=== PATIENT | female | born 1965 | race Caucasian/White ===

== ENCOUNTER 2017-07-05 23:05 | Inpatient (IN) | payer MEDICAID ==
[2017-07-06 00:02] LABS: ADD MAN DIFF? NO
[2017-07-06 00:05] LABS: WHITE BLOOD COUNT 12.1 10^3/ul (4.8-10.8)
[2017-07-06 00:05] LABS: BASOPHILS % 0.2 % (0.0-2.0); EOSINOPHILS % 0.1 % (0.0-7.0); HEMATOCRIT 35.9 % (37.0-47.0); HEMOGLOBIN 11.7 g/dl (12.0-16.0); LYMPHOCYTES # 1.1 10^3/ul (0.8-2.9); LYMPHOCYTES % 9.1 % (15.0-51.0); MEAN CORPUSCULAR HEMOGLOBIN 23.8 pg (29.0-33.0); MEAN CORPUSCULAR HGB CONC 32.6 g/dl (32.0-37.0); MEAN CORPUSCULAR VOLUME 73.1 fl (82.0-101.0); MEAN PLATELET VOLUME 10.8 fl (7.4-10.4); MONOCYTE # 0.7 10^3/ul (0.3-0.9); MONOCYTES % 5.8 % (0.0-11.0); NEUTROPHIL # 10.2 10^3/ul (1.6-7.5); NEUTROPHILS % 84.2 % (39.0-77.0); PLATELET COUNT 282 10^3/UL (140-415); RED BLOOD COUNT 4.91 10^6/ul (4.20-5.40); RED CELL DISTRIBUTION WIDTH 14.6 % (11.5-14.5)
[2017-07-06] MEDS: KETOROLAC 15 MG INJ IV (00:19)
[2017-07-06] MEDS: ACETAMINOPHEN 325 MG TAB PO ×4 (00:19→20:40)
[2017-07-06] MEDS: SODIUM CHLORIDE 0.9% 1L BAG IV* (00:19)
[2017-07-06 00:20] LABS: ADD UMIC YES; UR ASCORBIC ACID NEGATIVE (NEGATIVE); UR BACTERIA FEW /HPF (NONE SEEN); UR BILIRUBIN (Dip) NEGATIVE (NEGATIVE); UR BLOOD (Dip) 2+ mg/dL (NEGATIVE); UR CLARITY SLIGHTLY CLOUDY (CLEAR); UR COLOR YELLOW (YELLOW); UR GLUCOSE (Dip) 3+ mg/dL (NEGATIVE); UR KETONES (Dip) 2+ mg/dL (NEGATIVE); UR LEUKOCYTE ESTERASE (Dip) NEGATIVE Leu/ul (NEGATIVE); UR NITRITE (Dip) NEGATIVE (NEGATIVE); UR RBC 7 /HPF (0-5); UR SPECIFIC GRAVITY (Dip) 1.024 (1.003-1.030); UR TOTAL PROTEIN (Dip) 1+ mg/dl (NEGATIVE); UR UROBILINOGEN (Dip) NEGATIVE (NEGATIVE); UR WBC 2 /HPF (0-5)
[2017-07-06 00:25] LABS: INR 1.09; PROTIME 14.2 Sec (11.9-14.9); PT RATIO 1.1
[2017-07-06 00:26] LABS: PARTIAL THROMBOPLASTIN TIME 32.9 Sec (25.0-35.0)
[2017-07-06 00:35] LABS: ALANINE AMINOTRANSFERASE 17 IU/L (13-69); ALBUMIN 3.8 g/dl (3.3-4.9); ALBUMIN/GLOBULIN RATIO 1.11; ALKALINE PHOSPHATASE 138 IU/L (42-121); ANION GAP 17 (8-16); ASPARTATE AMINO TRANSFERASE 17 IU/L (15-46); BILIRUBIN,INDIRECT 0.5 mg/dl (0-1.1); BILIRUBIN,TOTAL 0.5 mg/dl (0.2-1.3); BLOOD UREA NITROGEN 11 mg/dl (7-20); CALCIUM 8.9 mg/dl (8.4-10.2); CARBON DIOXIDE 21 mmol/L (21-31); CHLORIDE 99 mmol/L (97-110); CREATININE 0.47 mg/dl (0.44-1.00); GLUCOSE 365 mg/dl (70-220); POTASSIUM 3.5 mmol/L (3.5-5.1); SODIUM 133 mmol/L (135-144); TOTAL PROTEIN 7.2 g/dl (6.1-8.1)
[2017-07-06 00:37] LABS: LACTIC ACID 2.3 mmol/L (0.5-2.0)
[2017-07-06 00:52] LABS: TROPONIN-I < 0.012 ng/ml (0.000-0.120)
[2017-07-06] MEDS: SOD CHLORIDE 0.9% 1,000 ML IV ×3 (02:25→22:10)
[2017-07-06] MEDS: CEFEPIME 1GM/50 ML (PMX) 50 ML IVPB ×3 (02:27→22:09)
[2017-07-06] MEDS: VANCOMYCIN 1 GM (PMX) 250 ML IVPB (02:30)
[2017-07-06] MEDS ORDERED: NACL 0.9% 3 ML SYG IV (02:30)
[2017-07-06] MEDS ORDERED: ONDANSETRON 4 MG TAB PO (02:30)
[2017-07-06 04:03] LABS: IRON 23 ug/dl (35-150)
[2017-07-06 04:09] LABS: HEMOGLOBIN A1C 13.9 % (0-5.9)
[2017-07-06 04:18] LABS: % IRON SATURATION 6 % SAT (22-52); TOTAL IRON BINDING CAPACITY 369 ug/dl (241-421)
[2017-07-06 04:25] LABS: ACETONE NEGATIVE (NEGATIVE)
[2017-07-06 05:57] LABS: ADD MAN DIFF? NO
[2017-07-06 06:01] LABS: BASOPHILS % 0.2 % (0.0-2.0); HEMATOCRIT 30.6 % (37.0-47.0); LYMPHOCYTES # 1.4 10^3/ul (0.8-2.9); LYMPHOCYTES % 13.1 % (15.0-51.0); MEAN CORPUSCULAR HGB CONC 32.7 g/dl (32.0-37.0); MEAN CORPUSCULAR VOLUME 73.6 fl (82.0-101.0); MEAN PLATELET VOLUME 10.9 fl (7.4-10.4); MONOCYTE # 0.6 10^3/ul (0.3-0.9); MONOCYTES % 5.7 % (0.0-11.0); NEUTROPHIL # 8.5 10^3/ul (1.6-7.5); NEUTROPHILS % 80.5 % (39.0-77.0); PLATELET COUNT 255 10^3/UL (140-415); RED BLOOD COUNT 4.16 10^6/ul (4.20-5.40); RED CELL DISTRIBUTION WIDTH 14.8 % (11.5-14.5)
[2017-07-06 06:01] LABS: WHITE BLOOD COUNT 10.6 10^3/ul (4.8-10.8)
[2017-07-06 06:34] LABS: ALANINE AMINOTRANSFERASE 20 IU/L (13-69); ALBUMIN 2.8 g/dl (3.3-4.9); ALBUMIN/GLOBULIN RATIO 0.96; ALKALINE PHOSPHATASE 89 IU/L (42-121); ANION GAP 14 (8-16); ASPARTATE AMINO TRANSFERASE 16 IU/L (15-46); BILIRUBIN,INDIRECT 0.3 mg/dl (0-1.1); BILIRUBIN,TOTAL 0.3 mg/dl (0.2-1.3); BLOOD UREA NITROGEN 8 mg/dl (7-20); CALCIUM 7.6 mg/dl (8.4-10.2); CARBON DIOXIDE 20 mmol/L (21-31); CHLORIDE 107 mmol/L (97-110); CHOLESTEROL 163 mg/dl (100-200); CREATININE 0.42 mg/dl (0.44-1.00); GLUCOSE 326 mg/dl (70-220); HDL CHOLESTEROL 53 mg/dl (37-92); LDL CHOLESTEROL,CALCULATED 94 mg/dl; MAGNESIUM 1.5 mg/dl (1.7-2.5); POTASSIUM 3.4 mmol/L (3.5-5.1); SODIUM 138 mmol/L (135-144); TOTAL PROTEIN 5.7 g/dl (6.1-8.1); TRIGLYCERIDES 82 mg/dl (0-149)
[2017-07-06] MEDS ORDERED: VANCOMYCIN IV PER PHARMACY XX (07:00)
[2017-07-06 07:01] LABS: Allen Test ACCEPTAB; Arterial Base Excess -7.3 mmol/L (-3.0-3); Arterial Blood Gas Oxygen Sat 94.8 mmHG (95.0-98.0); Arterial COHb 0.1 % (0.0-3.0); Arterial Fraction of Oxyhgb 94.4 % (93.0-99.0); Arterial HCO3 15.7 mmol/L (22.0-26.0); Arterial MetHb 0.3 % (0.0-1.5); Arterial Total Hemglobin 10.8 g/dl (12.0-18.0); Arterial pCO2 24.5 mmhg (35-45); MODE ROOM AIR; Site Right Radial
[2017-07-06 07:04] LABS: THYROID STIMULATING HORMONE 0.486 MIU/L (0.465-4.680)
[2017-07-06 07:24] LABS: MONOTEST Negative (NEG)
[2017-07-06] MEDS: HYDROCODONE/APAP (5/325) TAB PO (08:56)
[2017-07-06] MEDS ORDERED: MAGNESIUM SULFATE 4 GM/100 ML 100 ML IVPB (09:00)
[2017-07-06] MEDS: MAGNESIUM SULFATE 4 GM/100 ML 100 ML IVPB (09:43)
[2017-07-06] MEDS: POTASSIUM CHLORIDE (SR) 20 MEQ TAB PO (09:43)
[2017-07-06] MEDS ORDERED: DEXTROSE 50% 50 ML SYRINGE IV ×2 (12:30)
[2017-07-06] MEDS ORDERED: GLUCOSE GEL 15 GRAM TUBE PO ×2 (12:30)
[2017-07-06] MEDS ORDERED: GLUCOSE GEL 15 GRAM TUBE BUCCAL (12:30)
[2017-07-06] MEDS ORDERED: GLUCAGON 1 MG INJ IM (12:30)
[2017-07-06] MEDS: INSULIN ASPART [NOVOLOG] 3 ML PEN SC ×5 (12:43→20:27)
[2017-07-06] MEDS: VANCOMYCIN 1 GM in 250 ML IVPB (14:51)
[2017-07-06] MEDS: INSULIN GLARGINE [LANtus] 3 ML PEN SC (17:05)
[2017-07-06] MEDS ORDERED: INSULIN GLARGINE [LANtus] 3 ML PEN SC (20:00)
[2017-07-07] MEDS: VANCOMYCIN 1 GM in 250 ML IVPB ×2 (02:47→15:41)
[2017-07-07] MEDS: ACETAMINOPHEN 325 MG TAB PO ×2 (06:06→13:56)
[2017-07-07 07:54] LABS: ADD MAN DIFF? NO
[2017-07-07 07:59] LABS: BASOPHILS % 0.4 % (0.0-2.0); EOSINOPHILS % 0.1 % (0.0-7.0); HEMATOCRIT 28.4 % (37.0-47.0); HEMOGLOBIN 9.2 g/dl (12.0-16.0); LYMPHOCYTES # 1.6 10^3/ul (0.8-2.9); LYMPHOCYTES % 23.9 % (15.0-51.0); MEAN CORPUSCULAR HGB CONC 32.4 g/dl (32.0-37.0); MEAN CORPUSCULAR VOLUME 74.2 fl (82.0-101.0); MEAN PLATELET VOLUME 11.3 fl (7.4-10.4); MONOCYTE # 0.6 10^3/ul (0.3-0.9); MONOCYTES % 9.3 % (0.0-11.0); NEUTROPHIL # 4.5 10^3/ul (1.6-7.5); NEUTROPHILS % 65.9 % (39.0-77.0); PLATELET COUNT 220 10^3/UL (140-415); RED BLOOD COUNT 3.83 10^6/ul (4.20-5.40)
[2017-07-07 07:59] LABS: WHITE BLOOD COUNT 6.8 10^3/ul (4.8-10.8)
[2017-07-07] MEDS: INSULIN ASPART [NOVOLOG] 3 ML PEN SC ×7 (08:07→21:50)
[2017-07-07] MEDS: INSULIN GLARGINE [LANtus] 3 ML PEN SC ×2 (08:08→22:12)
[2017-07-07] MEDS: FERROUS SULFATE (EC) 325 MG TAB PO (08:22)
[2017-07-07 08:28] LABS: ALBUMIN 2.4 g/dl (3.3-4.9); ANION GAP 9 (8-16); BLOOD UREA NITROGEN 3 mg/dl (7-20); CALCIUM 7.4 mg/dl (8.4-10.2); CARBON DIOXIDE 22 mmol/L (21-31); CHLORIDE 108 mmol/L (97-110); CREATININE 0.37 mg/dl (0.44-1.00); GLUCOSE 201 mg/dl (70-220); MAGNESIUM 1.9 mg/dl (1.7-2.5); PHOSPHORUS 1.7 mg/dl (2.5-4.9); POTASSIUM 3.8 mmol/L (3.5-5.1); SODIUM 135 mmol/L (135-144)
[2017-07-07] MEDS: CEFEPIME 1GM/50 ML (PMX) 50 ML IVPB ×2 (09:52→21:43)
[2017-07-07 14:00] LABS: VANCOMYCIN,TROUGH < 5.0 ug/ml (10.0-20.0)
[2017-07-07] MEDS: SOD CHLORIDE 0.9% 1,000 ML IV (17:14)
[2017-07-07] MEDS: ENOXAPARIN 40 MG/0.4 ML SYG SC (17:16)
[2017-07-07] MEDS: metFORMIN 500 MG TAB PO (17:27)
[2017-07-07] MEDS: POTASSIUM PHOSPHATE 15 MM in SOD CHLORIDE 0.9% 250 ML IVPB (17:53)
[2017-07-07 19:27] LABS: EBV VIRAL CAPSID AG AB (IGG) >750.00 U/mL; EBV VIRAL CAPSID AG AB (IGM) <36.00 U/mL
[2017-07-08] MEDS ORDERED: VANCOMYCIN 1 GM 250 ML IVPB
[2017-07-08] MEDS: SOD CHLORIDE 0.9% 1,000 ML IV ×3 (02:30→22:47)
[2017-07-08 07:35] LABS: ADD MAN DIFF? NO
[2017-07-08 07:41] LABS: BASOPHILS % 0.5 % (0.0-2.0); EOSINOPHILS % 0.5 % (0.0-7.0); HEMATOCRIT 28.5 % (37.0-47.0); HEMOGLOBIN 9.2 g/dl (12.0-16.0); LYMPHOCYTES # 2.2 10^3/ul (0.8-2.9); LYMPHOCYTES % 34.9 % (15.0-51.0); MEAN CORPUSCULAR HEMOGLOBIN 23.7 pg (29.0-33.0); MEAN CORPUSCULAR HGB CONC 32.3 g/dl (32.0-37.0); MEAN CORPUSCULAR VOLUME 73.5 fl (82.0-101.0); MEAN PLATELET VOLUME 11.6 fl (7.4-10.4); MONOCYTE # 0.9 10^3/ul (0.3-0.9); MONOCYTES % 13.7 % (0.0-11.0); NEUTROPHIL # 3.1 10^3/ul (1.6-7.5); NEUTROPHILS % 50.1 % (39.0-77.0); PLATELET COUNT 233 10^3/UL (140-415); RED BLOOD COUNT 3.88 10^6/ul (4.20-5.40); RED CELL DISTRIBUTION WIDTH 15.2 % (11.5-14.5)
[2017-07-08 07:41] LABS: WHITE BLOOD COUNT 6.2 10^3/ul (4.8-10.8)
[2017-07-08] MEDS ORDERED: INSULIN GLARGINE [LANtus] 3 ML PEN SC (08:00)
[2017-07-08 08:02] LABS: ALBUMIN 2.9 g/dl (3.3-4.9); ANION GAP 14 (8-16); BLOOD UREA NITROGEN 2 mg/dl (7-20); CALCIUM 7.8 mg/dl (8.4-10.2); CARBON DIOXIDE 22 mmol/L (21-31); CHLORIDE 106 mmol/L (97-110); GLUCOSE 139 mg/dl (70-220); MAGNESIUM 1.6 mg/dl (1.7-2.5); PHOSPHORUS 2.9 mg/dl (2.5-4.9); POTASSIUM 3.2 mmol/L (3.5-5.1); SODIUM 139 mmol/L (135-144)
[2017-07-08] MEDS: metFORMIN 500 MG TAB PO ×2 (08:34→17:07)
[2017-07-08] MEDS: FERROUS SULFATE (EC) 325 MG TAB PO (08:34)
[2017-07-08] MEDS: INSULIN ASPART [NOVOLOG] 3 ML PEN SC ×7 (08:35→21:12)
[2017-07-08] MEDS: CEFEPIME 1GM/50 ML (PMX) 50 ML IVPB ×2 (08:36→21:09)
[2017-07-08] MEDS: ENOXAPARIN 40 MG/0.4 ML SYG SC (08:36)
[2017-07-08] MEDS: POTASSIUM CHLORIDE (SR) 10 MEQ TAB PO (11:54)
[2017-07-08] MEDS: MAGNESIUM SULFATE 2 GM/50 ML 50 ML IVPB (11:54)
[2017-07-08] MEDS: GABAPENTIN 300 MG CAP PO ×2 (13:31→21:09)
[2017-07-08] MEDS: INSULIN GLARGINE [LANtus] 3 ML PEN SC (21:11)
[2017-07-09 05:57] LABS: ADD MAN DIFF? NO
[2017-07-09 06:04] LABS: BASOPHILS % 0.4 % (0.0-2.0); EOSINOPHILS # 0.1 10^3/ul (0.0-0.5); EOSINOPHILS % 1.4 % (0.0-7.0); HEMATOCRIT 27.9 % (37.0-47.0); HEMOGLOBIN 8.9 g/dl (12.0-16.0); LYMPHOCYTES # 2.8 10^3/ul (0.8-2.9); LYMPHOCYTES % 55.6 % (15.0-51.0); MEAN CORPUSCULAR HEMOGLOBIN 23.7 pg (29.0-33.0); MEAN CORPUSCULAR HGB CONC 31.9 g/dl (32.0-37.0); MEAN CORPUSCULAR VOLUME 74.2 fl (82.0-101.0); MEAN PLATELET VOLUME 11.5 fl (7.4-10.4); MONOCYTE # 0.6 10^3/ul (0.3-0.9); MONOCYTES % 11.5 % (0.0-11.0); NEUTROPHIL # 1.5 10^3/ul (1.6-7.5); NEUTROPHILS % 30.9 % (39.0-77.0); PLATELET COUNT 249 10^3/UL (140-415); RED BLOOD COUNT 3.76 10^6/ul (4.20-5.40); RED CELL DISTRIBUTION WIDTH 15.5 % (11.5-14.5)
[2017-07-09 06:22] LABS: ALBUMIN 2.9 g/dl (3.3-4.9); ANION GAP 14 (8-16); BLOOD UREA NITROGEN 3 mg/dl (7-20); CALCIUM 8.3 mg/dl (8.4-10.2); CARBON DIOXIDE 24 mmol/L (21-31); CHLORIDE 109 mmol/L (97-110); CREATININE 0.36 mg/dl (0.44-1.00); GLUCOSE 207 mg/dl (70-220); MAGNESIUM 1.7 mg/dl (1.7-2.5); PHOSPHORUS 4.6 mg/dl (2.5-4.9); POTASSIUM 3.7 mmol/L (3.5-5.1); SODIUM 143 mmol/L (135-144)
[2017-07-09] MEDS: INSULIN ASPART [NOVOLOG] 3 ML PEN SC ×7 (08:14→20:23)
[2017-07-09] MEDS: ENOXAPARIN 40 MG/0.4 ML SYG SC (08:16)
[2017-07-09] MEDS: GABAPENTIN 300 MG CAP PO ×3 (08:17→20:18)
[2017-07-09] MEDS: SOD CHLORIDE 0.9% 1,000 ML IV (08:17)
[2017-07-09] MEDS: CEFEPIME 1GM/50 ML (PMX) 50 ML IVPB ×2 (08:17→20:18)
[2017-07-09] MEDS: metFORMIN 500 MG TAB PO ×2 (08:17→17:20)
[2017-07-09] MEDS: FERROUS SULFATE (EC) 325 MG TAB PO (08:17)
[2017-07-09 11:51] LABS: IRON 32 ug/dl (35-150)
[2017-07-09 12:00] LABS: % IRON SATURATION 10 % SAT (22-52); TOTAL IRON BINDING CAPACITY 322 ug/dl (241-421)
[2017-07-09 12:27] LABS: FERRITIN 27.7 ng/ml (11.1-264.0)
[2017-07-09] MEDS: NPH, HUMAN INSULIN ISOPHANE 3ML VIAL SC (20:23)
[2017-07-10] MEDS: glipiZIDE 5 MG TAB PO (08:21)
[2017-07-10] MEDS: metFORMIN 500 MG TAB PO (08:21)
[2017-07-10] MEDS: FERROUS SULFATE (EC) 325 MG TAB PO (08:22)
[2017-07-10] MEDS: GABAPENTIN 300 MG CAP PO ×2 (08:22→12:22)
[2017-07-10] MEDS: CEFEPIME 1GM/50 ML (PMX) 50 ML IVPB (08:22)
[2017-07-10] MEDS: ENOXAPARIN 40 MG/0.4 ML SYG SC (08:25)
[2017-07-10] MEDS: NPH, HUMAN INSULIN ISOPHANE 3ML VIAL SC (08:25)
[2017-07-10] MEDS: INSULIN ASPART [NOVOLOG] 3 ML PEN SC ×4 (08:26→11:39)
== END 2017-07-10 14:13 | disposition home or self-care (01) | DRG 872 ==
LOC: E/R 23:05 → PP2 07-08 19:10 → MS3 07-06 02:29 → MS4 07-06 10:33
DX: A41.51 Sepsis due to Escherichia coli [E. coli] (principal); N39.0 Urinary tract infection, site not specified; E87.1 Hypo-osmolality and hyponatremia; B96.20 Unspecified Escherichia coli [E. coli] as the cause of diseases classified elsewhere; E11.65 Type 2 diabetes mellitus with hyperglycemia; D50.9 Iron deficiency anemia, unspecified
CPT/HCPCS: 36415; 36600; 71045; 74176; 80053; 80061; 80069; 80202; 81001; 82010; 82728; 82803; 82962; 83036; 83540; 83605; 83735; 84443; 84484; 85025; 85610; 85730; 86308; 86664; 87040; 87086; 87275; 87276; 87279; 87280; 87400; 93005; 96365; 96375; 99291-25

== ENCOUNTER 2017-08-23 18:35 | Emergency (ER) | payer MEDICAID ==
[2017-08-23 20:34] LABS: ADD MAN DIFF? NO
[2017-08-23 20:35] LABS: BASOPHIL # 0.1 10^3/ul (0.0-0.1); BASOPHILS % 0.3 % (0.0-2.0); EOSINOPHILS % 0.1 % (0.0-7.0); HEMATOCRIT 32.9 % (37.0-47.0); HEMOGLOBIN 10.3 g/dl (12.0-16.0); LYMPHOCYTES % 5.2 % (15.0-51.0); MEAN CORPUSCULAR HGB CONC 31.3 g/dl (32.0-37.0); MEAN CORPUSCULAR VOLUME 73.4 fl (82.0-101.0); MEAN PLATELET VOLUME 10.4 fl (7.4-10.4); MONOCYTE # 1.2 10^3/ul (0.3-0.9); MONOCYTES % 6.5 % (0.0-11.0); NEUTROPHIL # 16.1 10^3/ul (1.6-7.5); NEUTROPHILS % 87.1 % (39.0-77.0); PLATELET COUNT 369 10^3/UL (140-415); RED BLOOD COUNT 4.48 10^6/ul (4.20-5.40); RED CELL DISTRIBUTION WIDTH 14.9 % (11.5-14.5)
[2017-08-23 20:35] LABS: WHITE BLOOD COUNT 18.5 10^3/ul (4.8-10.8)
[2017-08-23] MEDS: SODIUM CHLORIDE 0.9% 1L BAG IV* (20:52)
[2017-08-23] MEDS: KETOROLAC 15 MG INJ IV (20:53)
[2017-08-23] MEDS: ACETAMINOPHEN 500 MG TAB PO (20:53)
[2017-08-23 20:54] LABS: INR 1.15; PROTIME 14.9 Sec (11.9-14.9); PT RATIO 1.2
[2017-08-23 20:55] LABS: PARTIAL THROMBOPLASTIN TIME 37.9 Sec (25.0-35.0)
[2017-08-23 20:56] LABS: ALANINE AMINOTRANSFERASE 20 IU/L (13-69); ALBUMIN 4.1 g/dl (3.3-4.9); ALBUMIN/GLOBULIN RATIO 1.17; ALKALINE PHOSPHATASE 108 IU/L (42-121); ANION GAP 17 (8-16); ASPARTATE AMINO TRANSFERASE 20 IU/L (15-46); BILIRUBIN,INDIRECT 0.3 mg/dl (0-1.1); BILIRUBIN,TOTAL 0.3 mg/dl (0.2-1.3); BLOOD UREA NITROGEN 18 mg/dl (7-20); CALCIUM 8.8 mg/dl (8.4-10.2); CARBON DIOXIDE 18 mmol/L (21-31); CHLORIDE 103 mmol/L (97-110); CREATININE 0.74 mg/dl (0.44-1.00); GLUCOSE 204 mg/dl (70-220); POTASSIUM 3.9 mmol/L (3.5-5.1); SODIUM 134 mmol/L (135-144); TOTAL PROTEIN 7.6 g/dl (6.1-8.1)
[2017-08-23 21:07] LABS: TROPONIN-I < 0.010 ng/ml (0.000-0.120)
[2017-08-23] MEDS: CEFEPIME 1GM/50 ML (PMX) 50 ML IVPB (21:41)
[2017-08-23 22:28] LABS: LACTIC ACID 1.7 mmol/L (0.5-2.0)
[2017-08-23 22:45] LABS: ADD UMIC YES; UR ASCORBIC ACID NEGATIVE (NEGATIVE); UR BACTERIA FEW /HPF (NONE SEEN); UR BILIRUBIN (Dip) NEGATIVE (NEGATIVE); UR BLOOD (Dip) 1+ mg/dL (NEGATIVE); UR CLARITY SLIGHTLY CLOUDY (CLEAR); UR COLOR YELLOW (YELLOW); UR GLUCOSE (Dip) 1+ mg/dL (NEGATIVE); UR KETONES (Dip) NEGATIVE (NEGATIVE); UR LEUKOCYTE ESTERASE (Dip) TRACE Leu/ul (NEGATIVE); UR NITRITE (Dip) NEGATIVE (NEGATIVE); UR RBC 0 /HPF (0-5); UR SPECIFIC GRAVITY (Dip) 1.014 (1.003-1.030); UR SQUAMOUS EPITHELIAL CELL FEW /HPF (FEW); UR TOTAL PROTEIN (Dip) 1+ mg/dl (NEGATIVE); UR UROBILINOGEN (Dip) NEGATIVE (NEGATIVE); UR WBC 7 /HPF (0-5)
== END 2017-08-23 23:51 | disposition home or self-care (01) ==
LOC: E/R 18:35
DX: N12 Tubulo-interstitial nephritis, not specified as acute or chronic (principal); E86.0 Dehydration; M79.1 Myalgia; E11.9 Type 2 diabetes mellitus without complications; I10 Essential (primary) hypertension; R10.9 Unspecified abdominal pain; Z79.4 Long term (current) use of insulin
CPT/HCPCS: 36415; 71045; 80053; 81001; 81025; 83605; 84484; 85025; 85610; 85730; 87040; 87086; 93005; 96374; 96375; 99285-25